=== PATIENT | female | born 1990 | race Caucasian/White ===

== ENCOUNTER 2021-01-21 22:06 | Emergency (ER) | payer MEDICARE, BC, OTHER ==
[~2021-01-21] VITALS: Ht 157.5 cm; Wt 79.3 kg
[~2021-01-21 22:06] MED LIST: FENT1PAT17 TP; PANT20TA58 PO
[2021-01-21] MEDS ORDERED: ONDANSETRON PF 4 MG/2 ML VIAL. IVP ONE (23:00)
[2021-01-21] MEDS ORDERED: CONTRAST GIVEN. MC PRN (23:00)
--- NOTE | 2021-01-21 23:02 | PHYS DOC ---
Past History Additional Past Medical Histor: schizo effective d/o bipolar type, PTSD Past Surgical History: Tonsillectomy, Other Additional Past Surgical Histo: 5 fiber adenomas, adenoidectomy Alcohol Use: None General Adult EDM: Chief Complaint: GI PROBLEM HPI: HPI: Patient is a 30-year-old female who presents to the ER for left lower quadrant pain x4 days. Patient denies radiation of pain. She rates it 8 out of 10. She describes it as a cramping pain. She is currently being treated for a yeast infection by Dr. Flores and states that she does have burning with urination but she believes it is because of the excoriation from the yeast. Patient denies any vaginal bleeding, blood in stools or vomit, nausea, vomiting, diarrhea, fevers, urinary frequency or urgency, hematuria, difficulty eating or drinking. Patient has a history of ovarian cyst but has not had one in a while. Patient has an IUD in place. Normal bowel movement today. Review of Systems: Review of Systems: 14 body systems of the review of systems have been reviewed. See HPI for pert inent positive and negative responses, otherwise all other systems are negative, nonpertinent or noncontributory Current Medications: Current Meds: Current Medications Medications (Trade) Dose Ordered Sig/Teresa Start Time Stop Time Status Last Admin Dose Admin Fentanyl Citrate (Fentanyl 2ml Vial) 50 mcg 1X ONCE 01/21/21 23:00 01/21/21 23:01 Iohexol (Omnipaque 300 Mg/ml) 75 ml 1X ONCE 01/21/21 23:00 01/21/21 23:01 UNV Ondansetron HCl (Zofran) 4 mg 1X ONCE 01/21/21 23:00 01/21/21 23:01 Sodium Chloride 1,000 ml @ 1,000 mls/hr Q1H 01/21/21 23:00 01/21/21 23:59 Allergies: Allergies: Allergies Coded Allergies Type Severity Reaction Last Updated Verified Penicillins Allergy Mild Rash 01/21/21 Yes amoxicillin Allergy Mild Rash 01/21/21 Yes clavulanic acid Allergy Mild Rash 01/21/21 Yes codeine Allergy Mild Tongue Swelling 01/21/21 Yes erythromycin base Allergy Mild Rash 01/21/21 Yes levofloxacin Allergy Mild Rash 01/21/21 Yes morphine Allergy Mild Swelling of tongue 01/21/21 Yes Physical Exam: PE: Constitutional: Well developed, well nourished, no acute distress, non-toxic appearance. [] HENT: Normocephalic, atraumatic Eyes: PERRL, EOMI, conjunctiva normal, no discharge. [] Neck: Normal range of motion, no stridor Cardiovascular:Heart rate regular rhythm, no murmur [] Lungs & Thorax: Bilateral breath sounds clear to auscultation [] Abdomen: Bowel sounds normal, soft, left lower quadrant pain with palpation, no masses, no pulsatile masses. [] Skin: Warm, dry, no erythema, no rash. [] Back: Normal range of motion Extremities: No tenderness, no cyanosis, no clubbing, ROM intact, no edema. [] Neurologic: Alert and oriented X 3, normal motor function, normal sensory function, no focal deficits noted. [] Psychologic: Affect normal, judgement normal, mood normal. [] Current Patient Data: Labs: Laboratory Tests Test 01/21/21 22:56 01/21/21 23:13 01/21/21 23:29 Urine Collection Type Unknown Urine Color Yellow Urine Clarity Clear Urine pH 6.0 Urine Specific [place] 1.020 Urine Protein Neg Urine Glucose (UA) >=1000 mg/dL Urine Ketones (Stick) 15 mg/dL Urine Blood Small Urine Nitrite Neg Urine Bilirubin Neg Urine Urobilinogen Dipstick 0.2 mg/dL Urine Leukocyte Esterase Neg Urine RBC 1-2 /HPF Urine WBC Rare /HPF Urine Squamous Epithelial Cells Occ /LPF Urine Bacteria 0 /HPF Bedside Urine HCG, Qualitative hcg negative White Blood Count 10.9 x10^3/uL Red Blood Count 4.71 x10^6/uL Hemoglobin 13.9 g/dL Hematocrit 42.1 % Mean Corpuscular Volume 89 fL Mean Corpuscular Hemoglobin 29 pg Mean Corpuscular Hemoglobin Concent 33 g/dL Red Cell Distribution Width 15.0 % Platelet Count 387 x10^3/uL Neutrophils (%) (Auto) 58 % Lymphocytes (%) (Auto) 32 % Monocytes (%) (Auto) 6 % Eosinophils (%) (Auto) 3 % Basophils (%) (Auto) 1 % Neutrophils # (Auto) 6.3 x10^3uL Lymphocytes # (Auto) 3.5 x10^3/uL Monocytes # (Auto) 0.7 x10^3/uL Eosinophils # (Auto) 0.3 x10^3/uL Basophils # (Auto) 0.1 x10^3/uL Sodium Level 138 mmol/L Potassium Level 3.9 mmol/L Chloride Level 100 mmol/L Carbon Dioxide Level 27 mmol/L Anion Gap 11 Blood Urea Nitrogen 13 mg/dL Creatinine 1.1 mg/dL Estimated GFR (Cockcroft-Gault) 57.9 BUN/Creatinine Ratio 12 Glucose Level 286 mg/dL Calcium Level 9.4 mg/dL Total Bilirubin 0.2 mg/dL Aspartate Amino Transf (AST/SGOT) 30 U/L Alanine Aminotransferase (ALT/SGPT) 60 U/L Alkaline Phosphatase 92 U/L Total Protein 7.3 g/dL Albumin 4.0 g/dL Albumin/Globulin Ratio 1.2 Lipase 194 U/L Current Medications Medications (Trade) Dose Ordered Sig/Teresa Route PRN Reason Start Time Stop Time Status Last Admin Dose Admin Sodium Chloride 1,000 ml @ 1,000 mls/hr Q1H IV 01/21/21 23:00 01/21/21 23:59 DC 01/21/21 23:33 Fentanyl Citrate (Fentanyl 2ml Vial) 50 mcg 1X ONCE IVP 01/21/21 23:00 01/21/21 23:01 DC 01/21/21 23:34 Ondansetron HCl (Zofran) 4 mg 1X ONCE IVP 01/21/21 23:00 01/21/21 23:01 DC Iohexol (Omnipaque 300 Mg/ml) 75 ml 1X ONCE IV 01/21/21 23:00 01/21/21 23:01 DC 01/22/21 00:13 Info (Do NOT chart on this entry -- for MONITORING) 1 each PRN DAILY PRN MC SEE COMMENTS 01/21/21 23:00 01/23/21 22:59 Vital Signs: Vital Signs Date Time Temp Pulse Resp B/P (MAP) Pulse Ox O2 Delivery O2 Flow Rate FiO2 01/21/21 22:40 97.5 92 18 120/87 (98) 98 EKG: EKG: [] Radiology/Procedures: Radiology/Procedures: []PROCEDURE: CT ABD PELV W/ IV CONTRST ONLY CT abdomen pelvis with contrast dated 01/22/2021. No comparison available. CLINICAL INDICATION: Left lower quadrant pain. TECHNIQUE: Contiguous axial imaging the abdomen pelvis performed after the administration of 60 cc Omnipaque 300. One or more of the following individualized dose reduction techniques were utilized for this examination: 1. Automated exposure control 2. Adjustment of the mA and/or kV according to patient size 3. Use of iterative reconstruction technique FINDINGS: Limited images of the lung bases are clear. Heart size is within normal limits. No pleural or pericardial effusion. There are 2 indeterminate nodular foci in the central and lower left breast, largest measures up to 3 cm but appears fairly well-circumscribed. Diffuse low-density of the liver suggesting mild fatty infiltration. No apparent mass. Biliary tree normal in caliber. Gallbladder is collapsed but otherwise unremarkable. Spleen is normal in size. Pancreas, adrenal glands and kidneys are unremarkable. No hydronephrosis. Unopacified GI tract is normal in caliber and contour. No bowel wall thickening. No inflammatory stranding in the mesentery. No ascites or lymphadenopathy. Appendix normal in caliber. Images of pelvis show nondistended urinary bladder. Uterus and adnexa are unremarkable. No free fluid or pelvic lymphadenopathy. Bone windows show no acute finding. Grade 2 spondylolisthesis and bilateral spondylolysis at L5-S1. Resultant moderate bilateral foraminal narrowing at this level. IMPRESSION: 1. No acute abnormality of abdomen or pelvis. Normal appendix. 2. Mild fatty infiltration of the liver. 3. Grade 2 spondylolisthesis and bilateral spondylolysis at L5-S1. 4. Indeterminate circumscribed nodules within the left breast, possibly hyperdense cysts or solid masses. Suggest ultrasound for better evaluation. Electronically signed by: Raffy Rojas MD (01/22/2021 12:32 AM) [facility] [place]CTATED AND SIGNED BY: RAFFY ROJAS MD DATE: 01/22/21 0028 CC: EMERGENCY,DEPARTMENT; LA NENA COSME APRN; MALA FLORES ~MTH0 0 Heart Score: C/O Chest Pain: N/A Risk Factors: Risk Factors: DM, Current or recent (<one month) smoker, HTN, HLP, family history of CAD, obesity. Risk Scores: Score 0 - 3: 2.5% MACE over next 6 weeks - Discharge Home Score 4 - 6: 20.3% MACE over next 6 weeks - Admit for Clinical Observation Score 7 - 10: 72.7% MACE over next 6 weeks - Early Invasive Strategies Course & Med Decision Making: Course & Med Decision Making Pertinent Labs and Imaging studies reviewed. (See chart for details) Patient is a 30-year-old female who presents to the ER for left lower quadrant pain. Work-up in the ER consisted of blood work, urinalysis and CT scan of abdomen. Patient treated with fluids, nausea and pain medication. Work-up in the ER was unremarkable. Patient reports improvement in her symptosm. Patient advised to follow-up with her primary care provider. Increase her fluids and take Tylenol or ibuprofen at home. I discussed with patient all findings and diagnostic testing as well as the need to follow-up with PCP for further tatiana luation and treatment or return to the ER if any new or worsening symptoms. Strict return precautions were also discussed at length. Patient voiced understanding and agreement with the plan. Patient is hemodynamically stable at the time of disposition. Dragon Disclaimer: Tanvi Disclaimer: This electronic medical record was generated, in whole or in part, using a voice recognition dictation system. Departure Departure: Impression: Primary Impression: Abdominal pain Qualified Codes: R10.32 - Left lower quadrant pain Disposition: HOME / SELF CARE / HOMELESS Condition: GOOD Referrals: MALA FLORES (PCP) Patient Instructions: Abdominal Pain Additional Instructions: You were seen in the emergency department for left lower abdominal pain. Your work-up in the ER was unremarkable. You can take Tylenol/ibuprofen at home for pain. Increase your fluids. Follow-up with your primary care provider tomorrow regarding your ER visit. Return to the ER if you develop worsening of your abdominal pain, high fevers refractory to treatment, intractable nausea or vomiting, blood in your stools or vomit, vaginal bleeding or any new or worsening concerns. EMERGENCY DEPARTMENT GENERAL DISCHARGE INSTRUCTIONS Thank you for coming to [facility] (ED) today and trusting us with you care. We trust that you had a positivie experience in our Emergency Department. If you wish to speak to the department management, you may call the director at [phone]. YOUR FOLLOW UP INSTRUCTIONS ARE FOLLOWS: 1. Do you have a private Doctor? If you do not have a private doctor, please ask for a resource list of physicians or clinics that may be able to assist you with follow up care. 2. The Emergency Physician has interpreted your x-rays. The X-Ray specialist will also review them. If there is a change in the findings, you will be notified in 48 hours when at all possible. 3. A lab test or culture has been done, your results will be reviewed and you will be notified if you need a change in treatment. ADDITIONAL INSTRUCTIONS AND INFORMATION: 1. Your care today has been supervised by a physician who is specially trained in emergency care. Many problems require more than one evaluation for a complete diagnosis and treatment. We recommend that you schedule your follow up appointment as recommended to ensure complete treatment of you illness or injury. If you are unable to obtain follow up care and continue to have a problem, or if your condition worsens, we recommend that you return to the ED. 2. We are not able to safely determine your condition over the phone nor are we able to give sound medical advice over the phone. For these safety reasons, if you call for medical advice we will ask you to come to the ED for further evaluation. 3. If you have any questions regarding these discharge instructions please call the ED at [phone]. SAFETY INFORMATION: In the interest of safety, wellness, and injury prevention; we encourage you to wear your sealbelt, if you smoke; quite smoking, and we encourage family to use a protective helmet for bicycling and other sporting events that present an increased risk for head injury. IF YOUR SYMPTOMS WORSEN OR NEW SYMPTOMS DEVELOP, OR YOU HAVE CONCERNS ABOUT YOUR CONDITION; OR IF YOUR CONDITION WORSENS WHILE YOU ARE WAITING FOR YOUR FOLLOW UP APPOINTMENT; EITHER CONTACT YOUR PRIMARY CARE DOCTOR, THE PHYSICIAN WHOSE NAME AND NUMBER YOU WERE GIVEN, OR RETURN TO THE ED IMMEDIATELY. LA NENA COSME APRN Jan 21, 2021 23:02
[2021-01-21] MEDS: IV NORMAL SALINE 1,000ML 1,000 ML IV SCH (23:33)
[2021-01-21 23:38] LABS: BACTERIA,URINE 0 /HPF (0-FEW); BILIRUBIN,URINE NEG (NEG); CLARITY,URINE CLEAR; COLOR,URINE YELLOW; GLUCOSE,URINE >=1000 mg/dL (NEG); NITRITE,URINE NEG (NEG); SQUAMOUS EPITHELIAL CELL,UR OCC /LPF; UROBILINOGEN,URINE 0.2 mg/dL (0.2 mg/dL); WBC,URINE RARE /HPF (0-4)
[2021-01-21 23:45] LABS: BASO # 0.1 x10^3/uL (0.0-0.2); BASO % 1 % (0-3); EOS # 0.3 x10^3/uL (0.0-0.7); EOS % 3 % (0-3); HEMATOCRIT 42.1 % (36.0-47.0); HEMOGLOBIN 13.9 g/dL (12.0-15.5); LYMPH # 3.5 x10^3/uL (1.0-4.8); LYMPH % 32 % (24-48); MEAN CORPUSCULAR HEMOGLOBIN 29 pg (25-35); MEAN CORPUSCULAR HGB CONC 33 g/dL (31-37); MEAN CORPUSCULAR VOLUME 89 fL (79-100); MONO # 0.7 x10^3/uL (0.0-1.1); MONO % 6 % (0-9); NEUT # 6.3 x10^3uL (1.8-7.7); NEUT % 58 % (31-73); PLATELET COUNT 387 x10^3/uL (140-400); RED BLOOD COUNT 4.71 x10^6/uL (3.50-5.40); WHITE BLOOD COUNT 10.9 x10^3/uL (4.0-11.0)
[2021-01-21 23:52] LABS: CALCIUM 9.4 mg/dL (8.5-10.1); CREATININE 1.1 mg/dL (0.6-1.0); GFR 57.9; POTASSIUM 3.9 mmol/L (3.5-5.1)
[2021-01-21 23:58] LABS: ALBUMIN/GLOBULIN RATIO 1.2 (1.0-1.7); TOTAL BILIRUBIN 0.2 mg/dL (0.2-1.0); TOTAL PROTEIN 7.3 g/dL (6.4-8.2)
[2021-01-22] MEDS: IOHEXOL 300 MG/ML 75 ML VIAL. IV ONE (00:13)
--- NOTE | 2021-01-22 00:34 | RAD ---
CT abdomen pelvis with contrast dated 01/22/2021. No comparison available. CLINICAL INDICATION: Left lower quadrant pain. TECHNIQUE: Contiguous axial imaging the abdomen pelvis performed after the administration of 60 cc Omnipaque 300 . One or more of the following individualized dose reduction techniques were utilized for this examinat ion: 1. Automated exposure control 2. Adjustment of the mA and/or kV according to patient size 3. Use of iterative reconstruction technique FINDINGS: Limited images of the lung bases are clear. Heart size is within normal limits. No pleural or pericar dial effusion. There are 2 indeterminate nodular foci in the central and lower left breast, largest m easures up to 3 cm but appears fairly well-circumscribed. Diffuse low-density of the liver suggesting mild fatty infiltration. No apparent mass. Biliary tree n ormal in caliber. Gallbladder is collapsed but otherwise unremarkable. Spleen is normal in size. Pancreas, adrenal glands and kidneys are unremarkable. No hydronephrosis. Unopacified GI tract is normal in caliber and contour. No bowel wall thickening. No inflammatory stra nding in the mesentery. No ascites or lymphadenopathy. Appendix normal in caliber. Images of pelvis show nondistended urinary bladder. Uterus and adnexa are unremarkable. No free fluid or pelvic lymphadenopathy. Bone windows show no acute finding. Grade 2 spondylolisthesis and bilateral spondylolysis at L5-S1. R esultant moderate bilateral foraminal narrowing at this level. IMPRESSION: 1. No acute abnormality of abdomen or pelvis. Normal appendix. 2. Mild fatty infiltration of the liver. 3. Grade 2 spondylolisthesis and bilateral spondylolysis at L5-S1. 4. Indeterminate circumscribed nodules within the left breast, possibly hyperdense cysts or solid mas ses. Suggest ultrasound for better evaluation. Electronically signed by: Raffy Rojas MD (01/22/2021 12:32 AM) [facility]
[2021-01-22 00:52] VITALS: BP 117/98
== END 2021-01-22 00:55 | disposition home or self-care (01) ==
LOC: ER 22:06
DX: R10.32 Left lower quadrant pain (principal); F31.9 Bipolar disorder, unspecified; F43.10 Post-traumatic stress disorder, unspecified; Z88.0 Allergy status to penicillin; Z88.1 Allergy status to other antibiotic agents; Z88.5 Allergy status to narcotic agent
CPT/HCPCS: 36415; 74177; 80053; 81001; 81025; 83690; 85025; 96361; 96374; 99285; J3010; J7030; Q9967

== ENCOUNTER → 2021-01-24 | Outpatient (CLI) | payer MEDICARE, BC, OTHER ==
[2021-01-22 00:52] VITALS: BP 117/98
--- NOTE | 2021-01-24 15:02 | RAD ---
EXAM: Pelvic sonogram. HISTORY: Pain. TECHNIQUE: Transabdominal and transvaginal sonographic imaging of the pelvis was performed. COMPARISON: None. FINDINGS: The uterus measures 7.2 x 3.8 x 2.3 cm. The endometrial stripe measures 2 mm in thickness. The ovaries are normal in size and demonstrate normal blood flow. There are small bilateral ovarian f ollicles. There is no pelvic free fluid. There is an intrauterine consciousness device in expected po sition within the endometrial cavity. IMPRESSION: 1. IUD in expected position. 2. Otherwise, unremarkable pelvic sonogram. Electronically signed by: Marline Malhotra MD (01/24/2021 2:59 PM) [id number]
== END ==
LOC: US 13:41
PROVIDERS: ATTEND Family Medicine
DX: N83.02 Follicular cyst of left ovary (principal); N83.01 Follicular cyst of right ovary; N93.9 Abnormal uterine and vaginal bleeding, unspecified; Z97.5 Presence of (intrauterine) contraceptive device
CPT/HCPCS: 76830; 76856